=== PATIENT | female | born 1980 | race Caucasian/White ===

== ENCOUNTER 2018-09-18 16:44 | Emergency (ER) | payer BC, OTHER ==
[~2018-09-18] VITALS: Ht 144.8 cm; Wt 59.1 kg
--- NOTE | 2018-09-18 17:27 | REP ---
Left knee series: Five views. History: Pain after a fall. Findings: Five views of the left knee demonstrate a displaced inferior pole patellar fracture with associated soft-tissue swelling. The II fracture fragments are displaced approximately 1.7 cm. No femoral, tibial, or fibular fracture is appreciated. Impression: Displaced lower pole fracture of the patella with associated soft-tissue swelling. Electronically Signed by Kit Marcial MD 09/18/2018 05:18 P
[2018-09-18] MEDS ORDERED: PERCOCET 5MG/325MG TAB PO ONE (18:15)
[2018-09-18 18:33] VITALS: BP 145/85
== END 2018-09-18 18:34 | disposition home or self-care (01) ==
LOC: M ED 16:44
DX: S82.002A Unspecified fracture of left patella, initial encounter for closed fracture (principal); W19.XXXA Unspecified fall, initial encounter; Y92.009 Unspecified place in unspecified non-institutional (private) residence as the place of occurrence of the external cause